=== PATIENT | female | born 1945 | race Caucasian/White ===

== ENCOUNTER 2016-11-11 10:22 | Day surgery (SDC) | payer OTHER ==
[~2016-11-11] VITALS: Ht 157.5 cm; Wt 96.0 kg
[2016-11-11] VITALS (12 sets, daily range): BP systolic 141–199; BP diastolic 64–81; PULSE 47–57; RESP 18; TEMP 98.2–99.3; O2SAT 95–96
[2016-11-11] MEDS ORDERED: ASPIRIN 81 MG CHEW TAB PO SCH (11:00)
[2016-11-11 11:13] LABS: AUTOMATED NEUTROPHIL # 5.9 TH/MM3 (1.8-7.7); BASOPHIL # 0.1 TH/MM3 (0-0.2); BASOPHIL % 0.9 % (0.0-2.0); EOSINOPHIL # 0.2 TH/MM3 (0-0.4); EOSINOPHIL % 2.1 % (0.0-4.0); HEMATOCRIT 38.8 % (35.0-46.0); HEMO FLAGS DIFF FINAL; LYMPH % 21.4 % (9.0-44.0); LYMPHOCYTE # 1.9 TH/MM3 (1.0-4.8); MEAN CELL VOLUME 90.6 FL (80.0-100.0); MEAN CORPUSCULAR HGB CONC 34.2 % (32.0-36.0); MONO % 7.7 % (0.0-8.0); NEUT % 67.9 % (16.0-70.0); PLATELET COUNT 161 TH/MM3 (150-450); RED BLOOD COUNT 4.28 MIL/MM3 (4.00-5.30); RED CELL DISTRIBUTION WIDTH 13.1 % (11.6-17.2); WHITE BLOOD COUNT 8.7 TH/MM3 (4.0-11.0)
[2016-11-11] MEDS ORDERED: VITA10002 PO ×2 (11:17)
[2016-11-11] MEDS ORDERED: GLIP1TAB49 PO (11:17)
[2016-11-11] MEDS ORDERED: CRANCAP2 PO (11:17)
[2016-11-11] MEDS ORDERED: DORZ2SOL EACH EYE (11:17)
[2016-11-11] MEDS ORDERED: CETI10 PO (11:17)
[2016-11-11] MEDS ORDERED: BETI0.5S EACH EYE (11:17)
[2016-11-11] MEDS ORDERED: SITA1TAB2 PO (11:17)
[2016-11-11] MEDS ORDERED: LEVO112T2 PO (11:17)
[2016-11-11] MEDS ORDERED: ZOCO40TA PO (11:17)
[2016-11-11] MEDS ORDERED: ASPI81TA5 PO ×2 (11:17→11:18)
[2016-11-11] MEDS ORDERED: VITA100T65 PO (11:17)
[2016-11-11] MEDS ORDERED: LISI10TA3 PO (11:17)
[2016-11-11] MEDS ORDERED: HYDR-3288 PO (11:17)
[2016-11-11] MEDS ORDERED: VITA100021 SL (11:17)
[2016-11-11] MEDS ORDERED: TRAM50TA PO (11:17)
[2016-11-11] MEDS ORDERED: CHOL400D2 PO (11:17)
[2016-11-11] MEDS ORDERED: LEXA10TA PO (11:17)
[2016-11-11 11:23] LABS: BICARBONATE 28.2 MEQ/L (21.0-32.0); POTASSIUM 4.2 MEQ/L (3.5-5.1)
[2016-11-11 11:32] LABS: PROTHROMBIN TIME - PATIENT 10.7 SEC (9.8-11.6)
[2016-11-11] MEDS ORDERED: HEPARIN-NS/PF INJ 500 ML ONE (11:55)
[2016-11-11] MEDS ORDERED: IOHEXOL 350 MG/ML 100 ML BTL (for Cath Lab) OTHER ONE (11:59)
[2016-11-11] MEDS ORDERED: NITROGLYCERIN-DEXTROSE INJ 250 ML ONE (12:46)
[2016-11-11] MEDS ORDERED: HEPARIN SODIUM - IV 10,000 UNITS/10 ML VIAL ONE (12:52)
[2016-11-11] MEDS ORDERED: ADENOSINE STRESS TEST INJ 90 MG/30 ML VIAL ONE (12:54)
[2016-11-11] MEDS ORDERED: MIDAZOLAM HCL 2 MG/2 ML VIAL ONE (12:54)
[2016-11-11] MEDS ORDERED: FUROSEMIDE 40 MG/4 ML VIAL ONE (12:59)
[2016-11-11] MEDS ORDERED: SODIUM NITROPRUSSIDE 50 MG/2 ML VIAL ONE (13:07)
[2016-11-11] MEDS ORDERED: NITROGLYCERIN 2% OINT 1 GM PACKET ONE (13:18)
[2016-11-11] MEDS ORDERED: NITROGLYCERIN-DEXTROSE INJ 250 ML IV SCH (13:30)
[2016-11-11] MEDS ORDERED: SODIUM CHLORIDE 0.9% FLUSH 10 ML FLUSH PRN (13:30)
[2016-11-11] MEDS ORDERED: MISC INFORMATION XX ONE (13:30)
[2016-11-11] MEDS ORDERED: ATORVASTATIN 10 MG TAB PO SCH (21:00)
[2016-11-11] MEDS: CARVEDILOL 3.125 MG TAB PO SCH (21:28)
[2016-11-11] MEDS: SODIUM CHLORIDE 0.9% FLUSH 10 ML FLUSH SCH (21:29)
[2016-11-12] VITALS (12 sets, daily range): BP systolic 149–152; BP diastolic 81–89; PULSE 52–64; RESP 18–19; TEMP 98.7; O2SAT 96–97
[2016-11-12 05:03] LABS: AUTOMATED NEUTROPHIL # 7.7 TH/MM3 (1.8-7.7); BASOPHIL % 0.4 % (0.0-2.0); EOSINOPHIL # 0.1 TH/MM3 (0-0.4); EOSINOPHIL % 1.1 % (0.0-4.0); HEMO FLAGS DIFF FINAL; LYMPH % 20.3 % (9.0-44.0); LYMPHOCYTE # 2.2 TH/MM3 (1.0-4.8); MEAN CELL VOLUME 89.9 FL (80.0-100.0); MEAN CORPUSCULAR HEMOGLOBIN 30.7 PG (27.0-34.0); MEAN CORPUSCULAR HGB CONC 34.2 % (32.0-36.0); MONO % 7.7 % (0.0-8.0); NEUT % 70.5 % (16.0-70.0); PLATELET COUNT 143 TH/MM3 (150-450); RED BLOOD COUNT 4.11 MIL/MM3 (4.00-5.30); RED CELL DISTRIBUTION WIDTH 12.9 % (11.6-17.2); WHITE BLOOD COUNT 10.9 TH/MM3 (4.0-11.0)
[2016-11-12 05:06] LABS: BICARBONATE 27.7 MEQ/L (21.0-32.0)
[2016-11-12 05:08] LABS: HDL CHOLESTEROL 55.2 MG/DL (40.0-60.0)
[2016-11-12] MEDS: SODIUM CHLORIDE 0.9% FLUSH 10 ML FLUSH SCH (08:51)
[2016-11-12] MEDS: CARVEDILOL 3.125 MG TAB PO SCH (08:51)
[2016-11-12] MEDS ORDERED: ASPIRIN 81 MG CHEW TAB PO SCH (09:00)
[2016-11-12] MEDS ORDERED: RAMIPRIL 2.5 MG CAP PO SCH (09:00)
--- NOTE | 2016-11-12 14:23 | EKG ---
Date Performed: 11/11/2016 Time Performed: 11:13:48 PTAGE: 71 years EKG: Sinus bradycardia Left anterior fascicular block Possible anterior infarct - age undetermin ed Compared to previous tracing T wave flattening is new Abnormal ECG PREVIOUS TRACING : 11/18/1999 10.12 DOCTOR: Eric Ledezma Interpretating Date/Time 11/12/2016 14:22:40
--- NOTE | 2016-11-13 16:49 | MA ---
cc: [facility] DATE 11/13/16 PROCEDURE Right heart catheterization, left heart catheterization, left ventriculography, coronary angiography, FFR of the proximal LAD. INDICATION High-risk nuclear stress test, new-onset cardiac symptom of chest pain at rest. [place] [employer] Class IV angina, unstable angina, large reversible defect in the posterior wall, anterior wall, apical inferior wall. Small fixed defect in the posterior wall and also the apex. Gated SPECT ejection fraction 42%, cardiomyopathy, CHF, diabetes mellitus, peripheral vascular disease and coronary artery disease. PROCEDURE IN DETAIL The patient was brought to the cardiac catheterization laboratory, prepped and draped in the usual sterile fashion. 10 cc of 1% lidocaine was used to locally anesthetize the right common femoral artery and right common femoral vein. 4-Georgian sheath placed in the right common femoral artery, 7-Georgian sheath placed in the right common femoral vein, right heart catheterization was then performed with the following findings: The pulmonary capillary wedge pressure was 19/24-16. PA pressure 44/13-25. RV pressure 44/2-12. RA pressure 12/9-7. The femoral artery sat on room air 97.7%. Pulmonary artery sat 83.2%, right atrial sat of 83.6%. Cardiac output was 9.3 liters per minute. Cardiac index was 4.8 liters per meter squared per minute and SVR was 1010 dynes. Left heart catheterization was then performed with a 4-Georgian JR-4, JL-4 and AL-2 diagnostic catheter with the following findings: The LV pressures 225/14-20, ejection fraction 55%. Left main coronary artery has no significant disease angiographically. LAD is nontransapical, at the bifurcation with a medium size diagonal vessel has a 50-60% stenosis. Left circumflex vessel has no significant disease angiographically. First obtuse marginal vessel small vessel, no significant disease angiographically. Second obtuse marginal vessel is a large vessel with no significant disease angiographically. The right coronary was suboptimally imaged. It has a very inferior and horizontal takeoff. It did not have selective engagement of the diagnostic catheter but there was no obvious disease. 6-Georgian sheath was exchanged for a 4-Georgian sheath. Prior to this the patient had severely elevated blood pressure. Her blood pressure required 150 mics of nitroglycerin IV, 2 milligrams of Versed and 20 milligrams of IV Lasix to get the pressure down to 170. At that point the patient was bolused with 16 units per kilo of heparin with an ACT of 241. 6-Georgian ___ guide and 0.014 volcano pressure wire was placed in the proximal LAD. The introducer was removed. The guide catheter was thoroughly flushed with 20 cc of normal saline. Pressure waveforms were normalized. The ___ volcano pressure wire was placed into the distal LAD. Initial FFR was 0.97. The patient was infused with 140 mics per kilogram per minute of adenosine, maximal FFR was 0.94. We then waited 5 minutes and bolused the patient with 200 mics of intracoronary nipride. FFR was then 0.92. CONCLUSION 1. 50 to 60% proximal LAD with FFR 0.92. 2. Normal LV systolic function, ejection fraction 55%. 3. Markedly elevated systolic blood pressure with opening pressure of 208/80-125. 4. Recommend medical management of coronary artery disease, cardiac risk factor modification. MD APRIL Martinez/MAHENDRA /1:24 PM /4:25 PM
== END 2016-11-12 09:46 | disposition home or self-care (01) ==
LOC: HDOC 10:22 → HDIC 10:23 → HCIN 15:02 → HDOC 11-12 09:46
PROVIDERS: ATTEND Internal Medicine Interventional Cardiology
DX: I25.110 Atherosclerotic heart disease of native coronary artery with unstable angina pectoris (principal); I11.0 Hypertensive heart disease with heart failure; I50.9 Heart failure, unspecified; I42.9 Cardiomyopathy, unspecified; E11.51 Type 2 diabetes mellitus with diabetic peripheral angiopathy without gangrene; E03.9 Hypothyroidism, unspecified; E78.00 Pure hypercholesterolemia, unspecified; Z79.82 Long term (current) use of aspirin; Z79.84 Long term (current) use of oral hypoglycemic drugs; Z87.891 Personal history of nicotine dependence; Z85.820 Personal history of malignant melanoma of skin
CPT/HCPCS: 80048; 80061; 82550; 85002; 85025; 85610; 93005; 93460; 93571; C1769; C1887; C1893; J0153; J1644; J1940; J2250; Q9967